=== PATIENT | male | born 1975 | race African-American/Black ===

== ENCOUNTER 2017-07-23 17:06 | Emergency (ER) | payer MEDICARE, MEDICAID ==
[~2017-07-23] VITALS: Ht 160 cm; Wt 80.5 kg
[~2017-07-23 17:06] MED LIST: ALBUTEROL; BUSP15TA PO; CARB200T PO; CARI350T PO; GABA300C10 PO; MIRT30TA PO; OXYC15TA PO; OXYC15TA60 PO
[2017-07-23 18:02] LABS: HEMATOCRIT 48.8 % (39.2-51.8); HEMOGLOBIN 16.7 g/dL (13.7-18.0); WHITE BLOOD COUNT 11.8 x10^3/uL (3.4-10)
[2017-07-23 18:12] LABS: BLOOD UREA NITROGEN 16 mg/dL (7-18)
[2017-07-23 18:20] LABS: ASPARTATE AMINO TRANSFERASE 20 U/L (15-37)
[2017-07-23 18:42] VITALS: BP 93/57
== END 2017-07-23 19:47 ==
LOC: ED 19:13
DX: G89.29 Other chronic pain (principal); R10.9 Unspecified abdominal pain; J44.9 Chronic obstructive pulmonary disease, unspecified; F20.9 Schizophrenia, unspecified; F17.200 Nicotine dependence, unspecified, uncomplicated
CPT/HCPCS: 36415; 74020; 80053; 81003; 83690; 85025; 99285

== ENCOUNTER 2019-07-27 05:12 | Emergency (ER) | payer MEDICAID, MEDICARE ==
[~2019-07-27] VITALS: Ht 160 cm; Wt 71.4 kg
--- NOTE | 2019-07-27 05:34 | NUR ---
Patient into room, resting comfortably. Reported being anxious. Patient alert, oriented speech is clear. Physical assessment complete, all wnl. Awaiting assesment.
[2019-07-27] MEDS ORDERED: hydrOXyzine 50MG TABLET ONE (05:43)
--- NOTE | 2019-07-27 05:51 | NUR ---
Patient out of room, transported to imaging. Awaiting return.
--- NOTE | 2019-07-27 06:49 | NUR ---
RN to bedside, patient asking to be removed. Educated patient that he is an adult and can't be forced to do anything, but that the patient by not allowing his cardiac rhythms to be monitored or his oxygen to be monitored the patient can't be informed. Patient continues to refuse and removed his own pulsatile oxygen sensor. Patient reports worsening anxiety but appeared to perform behaviors which make him more anxious, patient has been pacing, on his phone the entire time. Provider aware.
[2019-07-27] MEDS ORDERED: LORazepam 1MG TABLET PO ONE (07:00)
[2019-07-27] MEDS ORDERED: LORazepam 1MG TABLET ONE (07:10)
--- NOTE | 2019-07-27 07:12 | NUR ---
PT WALKING UP AND DOWN HALLWAY. MEDICATED PER OCT FOR ANXIETY AND INFORMED THAT LABS HAVE BEEN ORDERED.
[2019-07-27 07:32] LABS: MEAN CORPUSCULAR HEMOGLOBIN 29.8 pg (27.5-34.5); MEAN CORPUSCULAR HGB CONC 32.3 g/dL (33.2-36.2); MEAN CORPUSCULAR VOLUME 92.1 fL (81-97); MEAN PLATELET VOLUME 6.6 fL (7.4-10.4); PLATELET COUNT 372 x10^3/uL (130-400); RED BLOOD COUNT 4.77 x10^6/uL (4.38-5.82)
--- NOTE | 2019-07-27 07:35 | NUR ---
Pravin hernandez in ED - 07/27/19 at 0825 by KONSTANTIN SLEEPING WHILE AWAITING RE-EVAL
[2019-07-27 07:52] LABS: ALANINE AMINOTRANSFERASE 26 U/L (12-78); ALBUMIN 3.5 g/dL (3.4-5.0); CALCIUM 9.5 mg/dL (8.5-10.1); CREATININE 1.06 mg/dL (0.7-1.3)
[2019-07-27 07:57] LABS: ALKALINE PHOSPHATASE 139 U/L (45-117); BASOPHILS # (AUTO) 0.02 x10^3/uL (0-0.1); BASOPHILS % (AUTO) 0 % (0-1); BILIRUBIN,TOTAL 0.4 mg/dL (0.2-1.0); EOSINOPHILS # (AUTO) 0.26 x10^3/uL (0-0.4); EOSINOPHILS % (AUTO) 3 % (1-7); LYMPHOCYTES # (AUTO) 3.17 x10^3/uL (1-3.4); LYMPHOCYTES % (AUTO) 31 % (22-44); MD SCAN; MONOCYTES % (AUTO) 10 % (2-9); NEUTROPHILS # (AUTO) 5.68 x10^3/uL (1.8-6.8); NEUTROPHILS % (AUTO) 56 % (42-75); TOTAL PROTEIN 7.3 g/dL (6.4-8.2); TROPONIN I < 0.015 ng/mL (0.000-0.045)
[2019-07-27 08:17] LABS: ANION GAP 2 mmol/L (5-15); CHLORIDE 104 mmol/L (98-107)
--- NOTE | 2019-07-27 08:22 | NUR ---
Pravin hernandez in [facility] - 07/27/19 at 0825 by KONSTANTIN RE-EVAL BY MD AND DISCHARGE INSTRUCTIONS GIVEN
--- NOTE | 2019-07-27 08:25 | NUR ---
PT SLEEPING. AWAITING DISPO
[2019-07-27 08:44] VITALS: BP 118/64
== END 2019-07-27 08:45 | disposition home or self-care (01) ==
LOC: ED 08:40
DX: F41.1 Generalized anxiety disorder (principal); Z88.0 Allergy status to penicillin; Z91.14 Patient's other noncompliance with medication regimen
CPT/HCPCS: 36415; 71046; 80053; 84484; 85025; 93005; 99284; Q0177